=== PATIENT | female | born 1940 | race Caucasian/White ===

== ENCOUNTER 2017-02-19 08:00 | Inpatient (IN) | payer MEDICARE ==
[~2017-02-19] VITALS: Ht 172.7 cm; Wt 119.8 kg
[~2017-02-19 08:00] MED LIST: ATOR10TA15 PO; CHOL1TAB PO; FLEC1TAB8 PO; HYDR1CAP30 PO; LEVO-86 PO; LEVO.125 PO; METO50TA PO; MONT10TA4 PO; OMEP20TA PO; WALKER WHEELS/F1 MIS
[2017-02-26] MEDS ORDERED: VITA500T4 PO (13:01)
--- NOTE | 2017-03-08 14:32 | MH ---
cc: Kai SHI M.D. DATE OF ADMISSION: 03/09/2017 ADMITTING DIAGNOSIS: Osteoarthritic degeneration right knee now being admitted for right total knee arthroplasty. HISTORY OF PRESENT ILLNESS: This pleasant morbidly obese, 76-year-old female is being admitted today for right total knee arthroplasty due to severe painful osteoarthritic degeneration right knee. OTHER PAST HISTORY 1. She is several months status post left total knee arthroplasty. 2. She has a history of arthritis. 3. Heart problems. 4. Hypertension 5. Nerve disorder 6. Sleep apnea 7. Thyroid issues CURRENT MEDICATIONS 1. Flecainide 2. Avastin. 3. Omeprazole. 4. Metoprolol 5. Montelukast 6. Synthroid 7. Vitamin D3. 8. Tylenol 9. Hydroxylapatite 10. Vitamin B12. PAST SURGERIES 1. Cholecystectomy 2. Hysterectomy 3. Foot surgery 4. Left total knee. REVIEW OF SYSTEMS Noncontributory. FAMILY HISTORY Noncontributory. She does not smoke or drink. ALLERGIES ASPIRIN PRODUCTS FLU SHOT TRAMADOL TRIAMTERINE TRAZODONE PHYSICAL EXAMINATION IN GENERAL: We find a morbidly obese 76-year female well-developed, well-nourished oriented x3 complaining of pain in her right knee. VITAL SIGNS: Blood pressure 126/74, pulse 70 and regular, respirations 16, temperature 97.8, pulse oximetry 96% on room air. HEAD, EYES, EARS, NOSE, AND THROAT: Eyes Pupils equal, round, reactive to light and accommodation, extraocular muscles intact. Ears, nose, mouth clear. NECK: The neck is supple. LUNGS: The lungs are clear. HEART: Regular rate. ABDOMEN: soft. Positive bowel sounds, nontender. EXTREMITIES: The extremities reveal the right knee to have crepitance. On range of motion she is neurovascularly intact to her toes. IMPRESSION Severe painful osteoarthritic degeneration right knee. PLAN Admission right total knee arthroplasty today. The patient given prescription postoperative pain control in the office plans on going to rehab after surgery. She understands the use Hibiclens scrub and Bactroban preoperatively. MD BORIS Grady/kady /2:08 PM /2:17 PM
[2017-03-09] MEDS ORDERED: ePHEDrine/NS 25 MG/5 ML SYR IV ONE (10:14)
[2017-03-09] MEDS ORDERED: PROPOFOL 200 MG/20 ML AMP IV ONE (10:14)
[2017-03-09] MEDS ORDERED: NEOSTIGMINE 3 MG/3 ML SYR IV ONE (10:15)
[2017-03-09] MEDS ORDERED: ONDANSETRON HCL 4 MG/2 ML VIAL IV PUSH ONE (10:15)
[2017-03-09] MEDS ORDERED: LACTATED RINGER'S 1000 ML INJ 2,000 ML IV ONE (10:15)
[2017-03-09] MEDS ORDERED: PHENYLEPH/NS 1000 MCG/10 ML SYR IV ONE (10:15)
[2017-03-09 11:08] VITALS: BP 146/69; PULSE 69; RESP 18; TEMP 98; O2SAT 96
[2017-03-09] MEDS ORDERED: CHLORHEXIDINE GLUCONATE 4% SOLN 120 ML BTL TOPICAL SCH (11:15)
[2017-03-09] MEDS ORDERED: ceFAZolin 2 GM PREMIX 50 ML IV SCH (11:15)
[2017-03-09] MEDS ORDERED: SODIUM CHLORIDE 0.9% IV SCH ×2 (11:15→14:00)
[2017-03-09] MEDS ORDERED: LACTATED RINGER'S 1000 ML IV PRN (11:15)
[2017-03-09] MEDS ORDERED: METOPROLOL TARTRATE 25 MG TAB PO PRN (11:15)
[2017-03-09] MEDS ORDERED: TRANEXAMIC ACID IV SCH ×2 (11:15→14:00)
[2017-03-09] MEDS ORDERED: CHLORHEXIDINE GLUCONATE 2 % 1 PACK (2 CLOTHS) TOPICAL PRN (11:15)
[2017-03-09] MEDS ORDERED: POVIDONE IODINE 5% (ANTISEPSIS KIT) 4 APPLICATIONS EACH NARE PRN (11:15)
[2017-03-09] MEDS ORDERED: SODIUM CHLORID 0.9% 500 ML IV PRN (11:15)
[2017-03-09] MEDS ORDERED: INSULIN HUMAN REGULAR 1,000 UNITS/10 ML VIAL SQ PRN (11:15)
[2017-03-09] MEDS ORDERED: VANCOMYCIN 1000 MG/NS 250 ML (for <70 kg) IV SCH ×2 (11:15)
[2017-03-09] MEDS ORDERED: BUPIVACAINE LIPOSO PF 1.3% INJ 20 ML, BUPIVACAINE PF 0.25% INJ 20 ML in SODIUM CHLORIDE... P-ARTICULR SCH (11:15)
[2017-03-09] MEDS ORDERED: CPMMACHINE (12:10)
[2017-03-09] MEDS ORDERED: WALKER WHEELS/F1 MIS (12:12)
[2017-03-09] MEDS ORDERED: MISC-163 (12:12)
[2017-03-09] MEDS ORDERED: ACETAMINOPHEN/HYDROcodone 325 MG/7.5 MG TAB PO PRN (12:15)
[2017-03-09] MEDS ORDERED: ONDANSETRON HCL 4 MG/2 ML VIAL IVP PRN (12:15)
[2017-03-09] MEDS ORDERED: NALOXONE HCL 0.4 MG/ML AMP IV PRN ×2 (12:15)
[2017-03-09] MEDS ORDERED: MORPHINE SULFATE 30 MG/30 ML PCA IV SCH (12:15)
[2017-03-09] MEDS ORDERED: Post-op Orders (for Pharmacy) MISC XX ONE (12:15)
[2017-03-09] MEDS ORDERED: ACETAMINOPHEN 325 MG TAB PO PRN (12:15)
[2017-03-09] MEDS ORDERED: SODIUM CHLORIDE 0.9% FLUSH 5 ML FLUSH IVF PRN (12:15)
[2017-03-09] MEDS ORDERED: TRANEXAMIC ACID INJ 0 MG in SODIUM CHLORIDE 0.9% INJ 100 ML IV SCH (12:15)
[2017-03-09] MEDS ORDERED: TEMAZEPAM 15 MG CAP PO PRN (12:15)
[2017-03-09] MEDS ORDERED: diphenhydrAMINE HCL 50 MG/ML VIAL IV PRN (12:15)
[2017-03-09] MEDS ORDERED: ceFAZolin INJ 1,000 MG VIAL ONE (13:06)
[2017-03-09] MEDS ORDERED: ceFAZolin INJ 1,000 MG VIAL XX ONE (15:07)
[2017-03-09] MEDS ORDERED: DO NOT ADM ANY ANTICOAGULANT DRUGS PRN (18:06)
[2017-03-09] MEDS: LACTATED RINGER'S 1000 ML INJ 1,000 ML IV SCH (18:30)
--- NOTE | 2017-03-09 18:37 | PD.CONS ---
[facility] By [facility] Sheets Reason for Consult Medical management Primary Care Physician Crissy Oliver DO Diagnoses: History of Present Illness This is a 76-year-old female with a history of chronic right knee pain affecting her activities of daily living and requiring cane and walker. She underwent TKA today by Dr. Sheets who requested consultation to evaluate and manage multiple medical conditions of the patient. Patient has history of arrhythmia which she describes as skipped beat on Tambocor, sleep apnea not on C Pap, GERD, chronic kidney disease stage III, hyperlipidemia, hypertension and hypothyroidism. Patient seen in recovery unit complaining of mild nausea and slight right knee discomfort. She received general anesthesia, 3 L crystalloid and EBL of 400 mL. Case discussed with RN and orthopedic surgeon. EMR reviewed. Review of Systems Except as stated in HPI: all other systems reviewed are Neg Past Family Social History Allergies: Coded Allergies: Aspirin (Unverified Allergy, Severe, 03/09/17) Tramadol (Unverified Allergy, Severe, respiratory, 03/09/17) Trazodone (Unverified Allergy, Severe, 03/09/17) Triamterene (Unverified Allergy, Severe, 03/09/17) Uncoded Allergies: FLU SHOT (Allergy, Severe, respiratory, 09/11/16) Past Medical History As previously mentioned Past Surgical History Left knee replacement, cholecystectomy, hysterectomy and foot surgery Reported Medications 1. Flecainide 2. Avastin. 3. Omeprazole. 4. Metoprolol 5. Montelukast 6. Synthroid 7. Vitamin D3. 8. Tylenol 9. Hydroxylapatite 10. Vitamin B12. Family History No heart disease Social History Does not smoke or drink Physical Exam Vital Signs Vital Signs Date Time Temp Pulse Resp B/P Pulse Ox O2 Delivery O2 Flow Rate FiO2 03/09/17 11:08 98.0 69 18 146/69 96 Physical Exam GENERAL: This is a well-nourished, well-developed patient, in no apparent distress. SKIN: No rashes, ecchymoses or lesions. Cool and dry. HEAD: Atraumatic. Normocephalic. No temporal or scalp tenderness. EYES: Pupils equal round and reactive. Extraocular motions intact. No scleral icterus. No injection or drainage. ENT: Nose without bleeding, purulent drainage or septal hematoma. Throat without erythema, tonsillar hypertrophy or exudate. Uvula midline. Airway patent. NECK: Trachea midline. No JVD or lymphadenopathy. Supple, nontender, no meningeal signs. CARDIOVASCULAR: Regular rate and rhythm without murmurs, gallops, or rubs. RESPIRATORY: Clear to auscultation. Breath sounds equal bilaterally. No wheezes , rales, or rhonchi. GASTROINTESTINAL: Abdomen soft, non-tender, nondistended. No guarding. MUSCULOSKELETAL: Extremities without clubbing, cyanosis, or edema. Lower extremity with dry dressing and in a CKS. Negative Homans sign bilaterally. NEUROLOGICAL: Awake and alert. Cranial nerves II through XII intact. Motor and sensory grossly within normal limits. Five out of 5 muscle strength in all muscle groups. Normal speech. Laboratory [facility] shows white count of 6.9 and hemoglobin 13.8 platelet count 199 sodium 143 potassium 4.410 25 creatinine 1.3 to urinalysis with moderate LES and occasional bacteria urine culture negative growth Laboratory Tests Test 03/09/17 11:10 Blood Type O POSITIVE Antibody Screen NEGATIVE Assessment and Plan Problem List: (1) Thyroid disease ICD Code: E07.9 Status: Chronic (2) Sleep apnea ICD Code: G47.30 Status: Chronic (3) Osteoarthritis of knee ICD Code: M17.9 Status: Chronic (4) Chronic kidney disease ICD Code: N18.9 Status: Chronic (5) Hypertension ICD Code: I10 Status: Chronic (6) H/O cardiac arrhythmia ICD Code: Z86.79 Status: Chronic (7) Hypothyroid ICD Code: E03.9 Status: Chronic (8) GERD (gastroesophageal reflux disease) ICD Code: K21.9 Status: Chronic (9) Hyperlipidemia ICD Code: E78.5 Status: Chronic Assessment and Plan This is a 76-year-old female with a history of chronic right knee pain affecting her activities of daily living and requiring cane and walker. She underwent TKA by Dr. Sheets. Stable continue postoperative care with physical therapy, wound care, DVT prophylaxis with Lovenox and pain management with Lortab and morphine CNC SPECIALIST. Counseled regarding narcotics. Incentive spirometry. Chronic medical conditions of arrhythmia which she describes as skipped beat on Tambocor, sleep apnea not on C Pap, GERD, chronic kidney disease stage III, hyperlipidemia, hypertension and hypothyroidism. Stable continue outpatient medications as appropriate DVT prophylaxis with Lovenox, early ambulation and SCD Discussed Condition With Patient and nursing staff Romie Juares MD March 09, 2017 18:37
[2017-03-09] MEDS ORDERED: fentaNYL CITRATE 250 MCG/5 ML AMP ONE (18:40)
--- NOTE | 2017-03-09 18:40 | RADRPT ---
EXAM DATE/TIME: 03/09/2017 18:00 [facility] COMPARISON: No previous studies available for comparison. INDICATIONS : Post operation, knee replacement. MEDICAL HISTORY : None. SURGICAL HISTORY : None. ENCOUNTER: Initial ACUITY: 1 day PAIN SCORE: Non-responsive. LOCATION: Right knee. FINDINGS: Patient is status post right knee arthroplasty that appears intact. There is some widening of the med ial compartment relative to the lateral, potentially positional or related to an effusion. Followup i s recommended. CONCLUSION: Recent right knee arthroplasty as above. Slight widening of the medial joint space relative to the la teral. No other acute complication demonstrated. Avinash Thurston MD on March 09, 2017 at 18:37 Board Certified Radiologist. This report was verified electronically.
[2017-03-09 21:00] VITALS: BP 130/62; PULSE 67; RESP 17; TEMP 96.3; O2SAT 100
[2017-03-09] MEDS: SODIUM CHLORIDE 0.9% FLUSH 5 ML FLUSH IVF SCH (21:00)
[2017-03-09] MEDS: PANTOPRAZOLE SOD 20 MG DELAYED RELEASE TAB PO SCH (21:01)
[2017-03-09] MEDS: ATORVASTATIN 10 MG TAB PO SCH (21:01)
[2017-03-09] MEDS: hydrOXYzine PAMOATE 25 MG CAP PO SCH (21:01)
[2017-03-09] MEDS: FLECAINIDE ACETATE 100 MG TAB PO SCH (21:01)
[2017-03-09] MEDS: PCA - TOTAL MG MORPHINE DELIVERED PER SHIFT SCH (21:02)
[2017-03-09 23:41] VITALS: BP 125/58; PULSE 77; RESP 16; TEMP 96.7; O2SAT 98
[2017-03-10 04:00] VITALS: BP 112/52; PULSE 62; RESP 16; TEMP 96.2; O2SAT 92
[2017-03-10 05:21] LABS: HEMATOCRIT 31.1 % (35.0-46.0); REVIEW FLAG FINAL
[2017-03-10] MEDS: PCA - TOTAL MG MORPHINE DELIVERED PER SHIFT SCH (06:00)
[2017-03-10] MEDS: LEVOTHYROXINE SODIUM 25 MCG TAB PO SCH (06:16)
[2017-03-10] MEDS: LEVOTHYROXINE SODIUM 112 MCG TAB PO SCH (06:16)
[2017-03-10 08:00] VITALS: BP 103/45; PULSE 76; RESP 18; TEMP 97.3; O2SAT 100
--- NOTE | 2017-03-10 08:33 | PD.ORT.PN ---
Subjective Subjective Remarks pt comfortable without complaints. Objective Vitals Vital Signs Date Time Temp Pulse Resp B/P Pulse Ox O2 Delivery O2 Flow Rate FiO2 03/10/17 06:00 18 03/10/17 04:00 96.2 62 16 112/52 92 03/09/17 23:41 96.7 77 16 125/58 98 03/09/17 21:00 96.3 67 17 130/62 100 03/09/17 20:05 Nasal Cannula 2.00 03/09/17 19:45 97.4 56 16 107/53 100 Nasal Cannula 3 03/09/17 19:15 63 16 131/63 100 Nasal Cannula 3 03/09/17 19:00 60 17 131/63 100 Nasal Cannula 3 03/09/17 18:45 59 17 119/61 97 Nasal Cannula 3 03/09/17 18:34 15 03/09/17 18:30 62 15 117/61 97 Nasal Cannula 3 03/09/17 18:15 71 15 122/62 97 Nasal Cannula 3 03/09/17 18:03 97.7 71 15 126/64 100 Nasal Cannula 3 03/09/17 11:08 98.0 69 18 146/69 96 I/O 03/09/17 03/09/17 03/09/17 03/10/17 03/10/17 03/10/17 07:00 15:00 23:00 07:00 15:00 23:00 Intake Total 2605 ml 250 ml Output Total 850 ml Balance 1755 ml 250 ml Intake Oral 480 ml 250 ml IV Total 125 ml Other 2000 ml Output Urine Total 450 ml Estimated Blood Loss 400 ml # Voids 0 3 # Bowel Movements 0 0 Result Diagram: 03/10/17 0413 Imaging Last 24 hours Impressions Knee X-Ray 03/09/17 1203 Signed Impressions: Service Date/Time: Thursday, March 09, 2017 18:00 - CONCLUSION: Recent right knee arthroplasty as above. Slight widening of the medial joint space relative to the lateral. No other acute complication demonstrated. Avinash Thurston MD Objective Remarks Dressing dry and intact. No calf tenderness. With knee immobilizer off, new xray shows better alignment of total knee. Assessment & Plan Ortho Post Op Day #: 1 Problem List: Assessment and Plan DC knee immobilizer and resume PT. DC NURSE INTERN. Watch blood pressure. Kai Sheets MD March 10, 2017 08:33
[2017-03-10] MEDS: METOPROLOL TARTRATE 50 MG TAB PO SCH (09:00)
[2017-03-10] MEDS: SODIUM CHLORIDE 0.9% FLUSH 5 ML FLUSH IVF SCH ×2 (09:00→21:00)
--- NOTE | 2017-03-10 09:02 | RADRPT ---
EXAM DATE/TIME: 03/10/2017 08:10 [facility] COMPARISON: KNEE RIGHT LTD (1 OR 2 VWS), March 09, 2017, 18:00. INDICATIONS : Right knee pain status post total right knee arthroplasty. MEDICAL HISTORY : None. SURGICAL HISTORY : Total knee replacement, right. ENCOUNTER: Subsequent ACUITY: 2 days PAIN SCORE: 3/10 LOCATION: Right Knee FINDINGS: 2 views right knee. Total knee prosthesis in place. Previously identified widening medially is not se en on the current study. No fracture identified. CONCLUSION: Total knee prosthesis. Previously identified medial widening is no longer seen. Freddie Lizarraga MD on March 10, 2017 at 8:58 Board Certified Radiologist. This report was verified electronically.
[2017-03-10] MEDS: CHOLECALCIFEROL (VIT D3) 1000 UNIT TAB PO SCH (09:41)
[2017-03-10] MEDS: PANTOPRAZOLE SOD 20 MG DELAYED RELEASE TAB PO SCH ×2 (09:41→20:59)
[2017-03-10] MEDS: FLECAINIDE ACETATE 100 MG TAB PO SCH ×2 (09:42→20:59)
[2017-03-10] MEDS: MONTELUKAST SODIUM 10 MG TAB PO SCH (09:42)
--- NOTE | 2017-03-10 09:43 | HHI.PR ---
Immediate Post Op Note Procedure Date: March 09, 2017 Pre Op Diagnosis: (1) Osteoarthritis of knee Post Op Diagnosis: Severe Degenerative Osteoarthritis of Right knee Surgeon: Don Sheets Facer Operator(s): Glenis SINGH Procedure: Right Total Knee Arthroplasty Complications: none Estimated blood loss: 200 Anesthesia: General Drains: None IVF (1300) Tourniquet time (min at mmHg) none Patient to: PACU Patient Condition: Good Implant/Devices: SEE IMPLANT LOG (if applicable) Date/Time of Procedure: SEE SURGICAL CARE RECORD Glenis Vargas March 10, 2017 09:43
[2017-03-10 10:40] VITALS: O2SAT 96
[2017-03-10] MEDS ORDERED: PILL SPLITTER OTHER PRN (11:00)
--- NOTE | 2017-03-10 11:35 | HHI.PR ---
Subjective Remarks Follow-up knee surgery. She is doing okay out of bed with physical therapy. Discussed with RN Objective Vitals Vital Signs Date Time Temp Pulse Resp B/P Pulse Ox O2 Delivery O2 Flow Rate FiO2 03/10/17 08:00 97.3 76 18 103/45 100 03/10/17 06:00 18 03/10/17 04:00 96.2 62 16 112/52 92 03/09/17 23:41 96.7 77 16 125/58 98 03/09/17 21:00 96.3 67 17 130/62 100 03/09/17 20:05 Nasal Cannula 2.00 03/09/17 19:45 97.4 56 16 107/53 100 Nasal Cannula 3 03/09/17 19:15 63 16 131/63 100 Nasal Cannula 3 03/09/17 19:00 60 17 131/63 100 Nasal Cannula 3 03/09/17 18:45 59 17 119/61 97 Nasal Cannula 3 03/09/17 18:34 15 03/09/17 18:30 62 15 117/61 97 Nasal Cannula 3 03/09/17 18:15 71 15 122/62 97 Nasal Cannula 3 03/09/17 18:03 97.7 71 15 126/64 100 Nasal Cannula 3 I/O 03/09/17 03/09/17 03/09/17 03/10/17 03/10/17 03/10/17 07:00 15:00 23:00 07:00 15:00 23:00 Intake Total 2605 ml 250 ml Output Total 850 ml Balance 1755 ml 250 ml Intake Oral 480 ml 250 ml IV Total 125 ml Other 2000 ml Output Urine Total 450 ml Estimated Blood Loss 400 ml # Voids 0 3 # Bowel Movements 0 0 Result Diagram: 03/10/17 0413 Imaging Last Impressions Knee X-Ray 03/10/17 0000 Signed Impressions: Service Date/Time: Friday, March 10, 2017 08:10 - CONCLUSION: Total knee prosthesis. Previously identified medial widening is no longer seen. Freddie Lizarraga MD Objective Remarks GENERAL: Well-developed, obese in no distress SKIN: Warm and dry. HEAD: Atraumatic. Normocephalic. EYES: Pupils equal and round. No scleral icterus. No injection or drainage. ENT: No nasal bleeding or discharge. Mucous membranes pink and moist. NECK: Trachea midline. No JVD. CARDIOVASCULAR: Regular rate and rhythm. RESPIRATORY: No accessory muscle use. Clear to auscultation. Breath sounds equal bilaterally. GASTROINTESTINAL: Abdomen soft, non-tender, nondistended. MUSCULOSKELETAL: Extremities without clubbing, cyanosis, or edema. No obvious deformities. Right knee with dry dressing NEUROLOGICAL: Awake and alert. No obvious cranial nerve deficits. Motor grossly within normal limits. Five out of 5 muscle strength in the arms and legs. Normal speech. PSYCHIATRIC: Appropriate mood and affect; insight and judgment normal. A/P Problem List: (1) Thyroid disease ICD Code: E07.9 Status: Chronic (2) Sleep apnea ICD Code: G47.30 Status: Chronic (3) Osteoarthritis of knee ICD Code: M17.9 Status: Chronic (4) Chronic kidney disease ICD Code: N18.9 Status: Chronic (5) Hypertension ICD Code: I10 Status: Chronic (6) H/O cardiac arrhythmia ICD Code: Z86.79 Status: Chronic (7) Hypothyroid ICD Code: E03.9 Status: Chronic (8) GERD (gastroesophageal reflux disease) ICD Code: K21.9 Status: Chronic (9) Hyperlipidemia ICD Code: E78.5 Status: Chronic Assessment and Plan This is a 76-year-old female with a history of chronic right knee pain affecting her activities of daily living and requiring cane and walker. She underwent TKA by Dr. Sheets. Stable continue postoperative care with physical therapy, wound care, DVT prophylaxis with Lovenox and pain management with Lortab and morphine OCCUPATIONAL THERAPY ASSISTANT. Counseled regarding narcotics. Incentive spirometry. Anemia secondary to acute blood loss. Hemodynamically stable. Monitor repeat H &H in the morning Chronic medical conditions of arrhythmia which she describes as skipped beat on Tambocor, sleep apnea not on C Pap, GERD, chronic kidney disease stage III, hyperlipidemia, hypertension and hypothyroidism. Stable continue outpatient medications as appropriate DVT prophylaxis with Lovenox, early ambulation and SCD Romie Juares MD March 10, 2017 11:35
[2017-03-10 12:00] VITALS: BP 115/54; PULSE 76; RESP 18; TEMP 97.2; O2SAT 94
[2017-03-10] MEDS: CYANOCOBALAMIN 1,000 MCG TAB PO SCH (13:51)
[2017-03-10] MEDS: LACTATED RINGER'S 1000 ML INJ 1,000 ML IV SCH ×2 (13:53→21:01)
[2017-03-10 16:00] VITALS: BP 103/48; PULSE 86; RESP 18; TEMP 97.4; O2SAT 93
[2017-03-10] MEDS: ENOXAPARIN SODIUM 30 MG/0.3 ML SYRINGE SQ SCH (17:49)
[2017-03-10] MEDS: ACETAMINOPHEN/HYDROcodone 325 MG/7.5 MG TAB PO PRN (17:55)
[2017-03-10 20:00] VITALS: BP 108/47; PULSE 90; RESP 20; TEMP 98; O2SAT 93
[2017-03-10] MEDS: DOCUSATE SODIUM 100 MG CAP PO SCH (20:59)
[2017-03-10] MEDS: ATORVASTATIN 10 MG TAB PO SCH (20:59)
[2017-03-10] MEDS: MULTIVITAMINS/MINERALS THERAPEUTIC TAB PO SCH (21:00)
[2017-03-10] MEDS: hydrOXYzine PAMOATE 25 MG CAP PO SCH (21:00)
--- NOTE | 2017-03-10 23:24 | MP ---
cc: Kai SHI DATE OF SURGERY 03/09/17 PREOPERATIVE DIAGNOSIS Osteoarthritic degeneration right knee. POSTOPERATIVE DIAGNOSIS Osteoarthritic degeneration right knee PROCEDURE Right total knee arthroplasty using consensus components sizes were size four femur, three tibia and 2 x 7.5 patella with three batches of [place] cement SURGEON Kortney Ramirez ACUTE CARE PHYSICIAN SAMANTHA Solomon and SAMANTHA Mcmillan ANESTHESIA General intubation PROCEDURE: After successful induction of anesthesia, the patient is placed on the operating room table in the supine position. The knee is prepped and draped in the usual manner. A tourniquet is inflated at the upper thigh and set to 300 mmHg pressure after exsanguination of the lower extremity. A longitudinal incision is made extending from 3 inches proximal to the superior pole of the patella, across the patella in longitudinal fashion, and down past the insertion of the tibial tubercle into the proximal tibia. The incision is carried down through subcutaneous tissue along the medial aspect of the patella and retinaculum, down through the capsule to expose the knee joint. The patella and patellar tendon are freed up enough to allow the patella to be inverted and retracted off the lateral side of the knee joint. The knee joint is left exposed. Small osteophytes are removed. All soft tissue is removed to allow proper position of the femoral and tibial cutting jig guide. The first femoral jig is then inserted along the distal end of the femur after first measuring to decide whether this is a small, medium, or large component. The notch is then drilled and the tibial cutting guide inserted into the femoral cutting guide, along with the ankle brace to allow for proper measurement of the tibial cutting surface that needed to be resected. Pins are inserted into the tibial cutting jig and femoral cutting jig to hold them in place. An oscillating saw is then used to resect the surface of the tibia. The surface of the tibia is then completely removed using sharp and blunt dissection. The anterior and posterior cuts of the femur are then made as well using an oscillating saw through the cutting guide. All guides are then removed and the varus/valgus angulation cutting guide applied to the femur for proper measurement of the proper amount of valgus. The anterior cutting guide for the femur is then inserted at the anterior femoral cuts made. Next, the first block trial is inserted into the femur to allow for proper condyle drill holes to be made which are then made followed by removal of the bone between the condyles using an oscillating saw as well as the bone removed at the most posterior surface of the condyle. After this, this guide is removed and the chamfer cuts made using the chamfer cutting guide from both anterior and posterior. Next, the femoral trial is then inserted, the tibial surface reflected anterior to expose the tibial surface and a tibial stem guide is inserted after first measuring for a standard, standard plus, large, or large plus surface to be used. After the stem is impacted the trial tibial surface is applied followed by the trial meniscal components. After full range of motion is found with the appropriate length meniscal components varying the patella is prepared by resecting the posterior aspect of the patella using an oscillating saw, inserting a trial. The trial is then removed and the cruciate cutting guide applied using the bur to cut the cruciate cuts. After cruciate cuts are made all trials are removed. The wound is irrigated copiously with antibiotic solution and Water Pik and the actual components inserted into place using aforementioned components using the B spoke protocol. After the cement has hardened and the components are found to have full range of motion with no instability. No tourniquet was utilized. 120 mL of Exparel was used around the knee joint for extra pain control. Deep fascia approximated with the insert was a size 16 insert Deep fascia approximated with running #2 quill, subcutaneous tissue approximated using interrupted 2-0 and 4-0 Monocryl suture and Steri-Strips. A sterile dressing and knee immobilizer. No drain utilized. The first assistants were present throughout the entire procedure including patient positioning throughout the procedure. The medical necessity of a nurse practitioner assistant toddler teacher is indicated in this case due to the surgical complexity of the case for help during the surgical case, certified surgical technologist was working the back table while my surgical coder SAMANTHA was directly assisting me also. This patient took an extra 45 minutes of exposure and closure time due to the nature of her morbid obesity and extra suturing layers were necessary. The patient tolerated the procedure well and left the operating in satisfactory condition. MD BORIS Grady/ /5:04 PM /11:00 PM
[2017-03-11] VITALS (7 sets, daily range): BP systolic 103–137; BP diastolic 44–57; PULSE 81–97; RESP 18–24; TEMP 96.4–98.4; O2SAT 90–100
[2017-03-11] MEDS: LEVOTHYROXINE SODIUM 112 MCG TAB PO SCH (04:58)
[2017-03-11] MEDS: LEVOTHYROXINE SODIUM 25 MCG TAB PO SCH (04:58)
[2017-03-11] MEDS: ENOXAPARIN SODIUM 30 MG/0.3 ML SYRINGE SQ SCH ×2 (04:58→17:01)
[2017-03-11 05:48] LABS: HEMATOCRIT 28.1 % (35.0-46.0); REVIEW FLAG FINAL
[2017-03-11] MEDS: METOPROLOL TARTRATE 50 MG TAB PO SCH (08:47)
[2017-03-11] MEDS: MAGNESIUM HYDROXIDE SUSP 30 ML CUP PO SCH ×2 (08:55→21:27)
[2017-03-11] MEDS: CYANOCOBALAMIN 1,000 MCG TAB PO SCH (08:55)
[2017-03-11] MEDS: CHOLECALCIFEROL (VIT D3) 1000 UNIT TAB PO SCH (08:56)
[2017-03-11] MEDS: MULTIVITAMINS/MINERALS THERAPEUTIC TAB PO SCH ×2 (08:56→21:27)
[2017-03-11] MEDS: MONTELUKAST SODIUM 10 MG TAB PO SCH (08:56)
[2017-03-11] MEDS: FLECAINIDE ACETATE 100 MG TAB PO SCH ×2 (08:57→21:27)
[2017-03-11] MEDS: PANTOPRAZOLE SOD 20 MG DELAYED RELEASE TAB PO SCH ×2 (08:57→21:27)
[2017-03-11] MEDS: DOCUSATE SODIUM 100 MG CAP PO SCH ×2 (08:58→21:27)
[2017-03-11] MEDS: SODIUM CHLORIDE 0.9% FLUSH 5 ML FLUSH IVF SCH ×2 (08:58→21:00)
[2017-03-11] MEDS: LEVOTHYROXINE SODIUM 125 MCG TAB PO SCH (09:15)
--- NOTE | 2017-03-11 09:20 | PD.ORT.PN ---
Subjective Post Op Day #: 2 Subjective Remarks Resting in bed; breakfast just arrived Complains of having a Headache No other significant complaints No BM Objective Vitals Vital Signs Date Time Temp Pulse Resp B/P Pulse Ox O2 Delivery O2 Flow Rate FiO2 03/11/17 04:00 96.4 90 24 114/51 92 03/11/17 00:00 98.1 90 20 117/44 90 03/10/17 20:00 98.0 90 20 108/47 93 03/10/17 16:00 97.4 86 18 103/48 93 03/10/17 12:00 97.2 76 18 115/54 94 03/10/17 10:40 96 21 I/O 03/10/17 03/10/17 03/10/17 03/11/17 03/11/17 03/11/17 07:00 15:00 23:00 07:00 15:00 23:00 Intake Total 250 ml 314 ml 1380 ml 240 ml Balance 250 ml 314 ml 1380 ml 240 ml Intake Oral 250 ml 1380 ml 240 ml IV Total 314 ml # Voids 3 3 1 # Bowel Movements 0 0 0 Result Diagram: 03/11/17 0514 Imaging Last 24 hours Impressions Knee X-Ray 03/09/17 1203 Signed Impressions: Service Date/Time: Thursday, March 09, 2017 18:00 - CONCLUSION: Recent right knee arthroplasty as above. Slight widening of the medial joint space relative to the lateral. No other acute complication demonstrated. Avinash Thurston MD Objective Remarks Alert, awake, oriented X3 VSS: Pulmonary: normal respiratory effort No acute distress right knee: dressing dry and intact; no calf tenderness; No Knee immobilizer Assessment & Plan Ortho Post Op Day #: 2 Problem List: Assessment and Plan POD 2 S/P Right Total Knee arthroplasty Doing well normal post op progress Anticoagulation: Lovenox while in hospital Pt following Discharge Planning for rehab tomorrow Chris NAVA knee immobilizer and resume PT. Watch blood pressure. Glenis Vargas March 11, 2017 09:20
[2017-03-11] MEDS ORDERED: BACITRACIN OINT 0.9 GM PKT TOP PRN (10:15)
[2017-03-11] MEDS ORDERED: HYDR-3580 PO (10:38)
--- NOTE | 2017-03-11 12:20 | HHI.PR ---
Subjective Remarks Follow-up anemia. Denies dizziness, chest pain, shortness of breath and palpitations. Still no bowel movement but denies nausea, abdominal pain Objective Vitals Vital Signs Date Time Temp Pulse Resp B/P Pulse Ox O2 Delivery O2 Flow Rate FiO2 03/11/17 08:00 97.7 88 18 119/57 94 03/11/17 04:00 96.4 90 24 114/51 92 03/11/17 00:00 98.1 90 20 117/44 90 03/10/17 20:00 98.0 90 20 108/47 93 03/10/17 16:00 97.4 86 18 103/48 93 I/O 03/10/17 03/10/17 03/10/17 03/11/17 03/11/17 03/11/17 06:59 14:59 22:59 06:59 14:59 22:59 Intake Total 250 ml 1694 ml 240 ml Balance 250 ml 1694 ml 240 ml Intake Oral 250 ml 1380 ml 240 ml IV Total 314 ml # Voids 3 3 1 # Bowel Movements 0 0 0 Result Diagram: 03/11/17 0514 Imaging Last Impressions Knee X-Ray 03/10/17 0000 Signed Impressions: Service Date/Time: Friday, March 10, 2017 08:10 - CONCLUSION: Total knee prosthesis. Previously identified medial widening is no longer seen. Freddie Lizarraga MD Objective Remarks GENERAL: Well-developed, obese in no distress SKIN: Warm and dry. HEAD: Atraumatic. Normocephalic. EYES: Pupils equal and round. No scleral icterus. No injection or drainage. ENT: No nasal bleeding or discharge. Mucous membranes pink and moist. NECK: Trachea midline. No JVD. CARDIOVASCULAR: Regular rate and rhythm. RESPIRATORY: No accessory muscle use. Clear to auscultation. Breath sounds equal bilaterally. GASTROINTESTINAL: Abdomen soft, non-tender, nondistended. MUSCULOSKELETAL: Extremities without clubbing, cyanosis, or edema. No obvious deformities. Right knee with dry dressing NEUROLOGICAL: Awake and alert. No obvious cranial nerve deficits. Motor grossly within normal limits. Five out of 5 muscle strength in the arms and legs. Normal speech. Nonfocal PSYCHIATRIC: Appropriate mood and affect; insight and judgment normal. A/P Problem List: (1) Thyroid disease ICD Code: E07.9 Status: Chronic (2) Sleep apnea ICD Code: G47.30 Status: Chronic (3) Osteoarthritis of knee ICD Code: M17.9 Status: Chronic (4) Chronic kidney disease ICD Code: N18.9 Status: Chronic (5) Hypertension ICD Code: I10 Status: Chronic (6) H/O cardiac arrhythmia ICD Code: Z86.79 Status: Chronic (7) Hypothyroid ICD Code: E03.9 Status: Chronic (8) GERD (gastroesophageal reflux disease) ICD Code: K21.9 Status: Chronic (9) Hyperlipidemia ICD Code: E78.5 Status: Chronic Assessment and Plan This is a 76-year-old female with a history of chronic right knee pain affecting her activities of daily living and requiring cane and walker. She underwent TKA by Dr. Sheets. 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 Counseled regarding narcotics. Incentive spirometry. Anemia secondary to acute blood loss. Hemodynamically stable. Monitor Constipation. Continue Colace. Chronic medical conditions of arrhythmia which she describes as skipped beat on Tambocor, sleep apnea not on C Pap, GERD, chronic kidney disease stage III, hyperlipidemia, hypertension and hypothyroidism. Stable continue outpatient medications as appropriate DVT prophylaxis with Lovenox, early ambulation and SCD Romie Juares MD March 11, 2017 12:20
[2017-03-11] MEDS: LACTATED RINGER'S 1000 ML INJ 1,000 ML IV SCH ×2 (14:03→21:30)
[2017-03-11] MEDS: ACETAMINOPHEN/HYDROcodone 325 MG/7.5 MG TAB PO PRN (17:38)
[2017-03-11] MEDS: hydrOXYzine PAMOATE 25 MG CAP PO SCH (21:27)
[2017-03-11] MEDS: ATORVASTATIN 10 MG TAB PO SCH (21:27)
[2017-03-12] VITALS: BP 134/50; PULSE 86; RESP 20; TEMP 98.5; O2SAT 97
[2017-03-12] MEDS ORDERED: BISACODYL 10 MG SUPP RECTAL PRN (03:57)
[2017-03-12 04:00] VITALS: BP 133/55; PULSE 96; RESP 20; TEMP 98; O2SAT 99
[2017-03-12] MEDS: ENOXAPARIN SODIUM 30 MG/0.3 ML SYRINGE SQ SCH (04:50)
[2017-03-12] MEDS ORDERED: BISACODYL 10 MG SUPP RECTAL ONE (06:00)
[2017-03-12 07:05] VITALS: BP 135/56; PULSE 92; RESP 18; TEMP 97.9; O2SAT 100
--- NOTE | 2017-03-12 07:59 | HHI.PR ---
Subjective Remarks In the chair. Says she has some pain however is controlled by medications. No nausea or vomiting. Tolerates food. Denies chest pain or shortness of breath. Denies fever or chills. Objective Vitals Vital Signs Date Time Temp Pulse Resp B/P Pulse Ox O2 Delivery O2 Flow Rate FiO2 03/12/17 04:00 98.0 96 20 133/55 99 03/12/17 00:00 98.5 86 20 134/50 97 03/11/17 20:15 Nasal Cannula 2.00 03/11/17 20:00 97.8 97 22 137/52 97 03/11/17 17:33 117/56 03/11/17 16:00 97.6 88 18 103/50 100 03/11/17 15:54 Nasal Cannula 2.00 21 03/11/17 12:00 98.4 81 18 107/56 99 03/11/17 08:00 97.7 88 18 119/57 94 I/O 03/11/17 03/11/17 03/11/17 03/12/17 03/12/17 03/12/17 07:00 15:00 23:00 07:00 15:00 23:00 Intake Total 240 ml 1260 ml 240 ml Balance 240 ml 1260 ml 240 ml Intake Oral 240 ml 1260 ml 240 ml # Voids 1 4 2 # Bowel Movements 0 0 0 Result Diagram: 03/11/17 0514 Imaging Last Impressions Knee X-Ray 03/10/17 0000 Signed Impressions: Service Date/Time: Friday, March 10, 2017 08:10 - CONCLUSION: Total knee prosthesis. Previously identified medial widening is no longer seen. Freddie Lizarraga MD Objective Remarks GENERAL: Well-developed, obese in no distress SKIN: Warm and dry. HEAD: Atraumatic. Normocephalic. EYES: Pupils equal and round. No scleral icterus. No injection or drainage. ENT: No nasal bleeding or discharge. Mucous membranes pink and moist. NECK: Trachea midline. No JVD. CARDIOVASCULAR: Regular rate and rhythm. RESPIRATORY: No accessory muscle use. Clear to auscultation. Breath sounds equal bilaterally. GASTROINTESTINAL: Abdomen soft, non-tender, nondistended. MUSCULOSKELETAL: Extremities without clubbing, cyanosis, or edema. No obvious deformities. Right knee with dry dressing NEUROLOGICAL: Awake and alert. No obvious cranial nerve deficits. Motor grossly within normal limits. Five out of 5 muscle strength in the arms and legs. Normal speech. Nonfocal PSYCHIATRIC: Appropriate mood and affect; insight and judgment normal. A/P Problem List: (1) Thyroid disease ICD Code: E07.9 Status: Chronic (2) Sleep apnea ICD Code: G47.30 Status: Chronic (3) Osteoarthritis of knee ICD Code: M17.9 Status: Chronic (4) Chronic kidney disease ICD Code: N18.9 Status: Chronic (5) Hypertension ICD Code: I10 Status: Chronic (6) H/O cardiac arrhythmia ICD Code: Z86.79 Status: Chronic (7) Hypothyroid ICD Code: E03.9 Status: Chronic (8) GERD (gastroesophageal reflux disease) ICD Code: K21.9 Status: Chronic (9) Hyperlipidemia ICD Code: E78.5 Status: Chronic Assessment and Plan This is a 76-year-old female with a history of chronic right knee pain affecting her activities of daily living and requiring cane and walker. She underwent TKA by Dr. Sheets. Stable continue postoperative care with physical therapy, wound care, DVT prophylaxis with Lovenox and pain management with Lortab and morphine [employer]. Counseled regarding narcotics. Encouraged incentive spirometry. Anemia secondary to acute blood loss. Hemodynamically stable. Monitor Constipation. Continue Colace. Chronic medical conditions of arrhythmia which she describes as skipped beat on Tambocor, sleep apnea not on C Pap, GERD, chronic kidney disease stage III, hyperlipidemia, hypertension and hypothyroidism. Stable continue outpatient medications as appropriate Morbid obesity BMI 40.3. Diet and exercise. DVT prophylaxis with Lovenox, early ambulation and SCD Colleen Tomas MD March 12, 2017 07:59
[2017-03-12] MEDS: MAGNESIUM HYDROXIDE SUSP 30 ML CUP PO SCH (09:00)
[2017-03-12] MEDS: SODIUM CHLORIDE 0.9% FLUSH 5 ML FLUSH IVF SCH (09:00)
[2017-03-12] MEDS: ACETAMINOPHEN/HYDROcodone 325 MG/7.5 MG TAB PO PRN ×2 (10:16→14:32)
[2017-03-12] MEDS: DOCUSATE SODIUM 100 MG CAP PO SCH (10:16)
[2017-03-12] MEDS: CHOLECALCIFEROL (VIT D3) 1000 UNIT TAB PO SCH (10:16)
[2017-03-12] MEDS: METOPROLOL TARTRATE 50 MG TAB PO SCH (10:16)
[2017-03-12] MEDS: CYANOCOBALAMIN 1,000 MCG TAB PO SCH (10:17)
[2017-03-12] MEDS: PANTOPRAZOLE SOD 20 MG DELAYED RELEASE TAB PO SCH (10:18)
[2017-03-12] MEDS: MULTIVITAMINS/MINERALS THERAPEUTIC TAB PO SCH (10:19)
[2017-03-12] MEDS: LEVOTHYROXINE SODIUM 125 MCG TAB PO SCH (10:19)
[2017-03-12] MEDS: FLECAINIDE ACETATE 100 MG TAB PO SCH (10:19)
[2017-03-12] MEDS: MONTELUKAST SODIUM 10 MG TAB PO SCH (10:30)
[2017-03-12 10:33] VITALS: O2SAT 96
[2017-03-12 11:50] VITALS: BP 97/58; PULSE 72; RESP 18; TEMP 98.6; O2SAT 95
[2017-03-12] MEDS ORDERED: MAGNESIUM HYDROXIDE SUSP 30 ML CUP PO PRN (14:15)
--- NOTE | 2017-03-12 15:08 | HHI.DS ---
Discharge Summary Admission Date March 09, 2017 at 10:00 Discharge Date: March 12, 2017 Admitting Diagnosis Osteoarthritic degeneration right knee. Diagnosis: (1) Total knee replacement status Diagnosis: Principal Brief History This is a 76 year old female patient CBC/BMP: 03/11/17 0514 Significant Findings Laboratory Tests Test 03/10/17 03/11/17 04:13 05:14 Hemoglobin 10.4 GM/DL 9.4 GM/DL (11.6-15.3) (11.6-15.3) Hematocrit 31.1 % 28.1 % (35.0-46.0) (35.0-46.0) PE at Discharge Alert, awake, oriented X3 VSS: Pulmonary: normal respiratory effort No acute distress right knee: dressing dry and intact; no calf tenderness; No Knee immobilizer Hospital Course Patient underwent a right total knee arthroplasty on day of admission. She was given a course of prophylactic IV antibiotics and within 23 hours started back on anticoagulation therapy. She began out of bed tolerating food and fluid well. She remained afebrile vitals stable and began daily wound care and physical therapy. She continued to improve and was discharged to [facility] on postoperative day 3 in good condition with instructions for continuation of care anticoagulation therapy and pain medication. Pt Condition on Discharge: Good Discharge Disposition: Rehab Inpatient Discharge Instructions Diet Instructions: As Tolerated, No Restrictions Activities You Can Perform: Full Weight Bearing, Shower Only-No Bath Activities to Avoid: Bathing, Driving Kai Sheets MD March 12, 2017 15:08
[2017-03-23] MEDS ORDERED: OMEP20TA PO (08:37)
[2017-03-23] MEDS ORDERED: METO50TA PO (08:37)
[2017-03-23] MEDS ORDERED: FLEC1TAB8 PO (08:37)
[2017-03-23] MEDS ORDERED: DOCU1CAP39 PO (08:37)
[2017-03-23] MEDS ORDERED: VITA1000 PO (08:37)
[2017-03-23] MEDS ORDERED: LEVO.125 PO (08:37)
[2017-03-23] MEDS ORDERED: THERTAB15 PO (08:37)
[2017-03-23] MEDS ORDERED: ATOR10TA15 PO (08:37)
[2017-03-23] MEDS ORDERED: LEVO-86 PO (08:37)
[2017-03-23] MEDS ORDERED: MONT10TA4 PO (08:37)
== END 2017-03-12 14:48 | DRG 470 ==
LOC: HSDI 03-09 10:00 → N06B 03-09 19:57
PROVIDERS: ADMIT Surgery; ATTEND Surgery
PROC: 3E0T3CZ (ICD-10-PCS; 2017-03-09)
PROC: 0SRC0J9 Replacement of Right Knee Joint with Synthetic Substitute, Cemented, Open Approach (ICD-10-PCS; principal; 2017-03-09 13:58)
DX: M17.11 Unilateral primary osteoarthritis, right knee (principal); N18.3 Chronic kidney disease, stage 3 (moderate); D62 Acute posthemorrhagic anemia; Z68.41 Body mass index [BMI] 40.0-44.9, adult; I12.9 Hypertensive chronic kidney disease with stage 1 through stage 4 chronic kidney disease, or unspecified chronic kidney disease; E66.01 Morbid (severe) obesity due to excess calories; G47.30 Sleep apnea, unspecified; G89.29 Other chronic pain; K21.9 Gastro-esophageal reflux disease without esophagitis; E78.5 Hyperlipidemia, unspecified; E03.9 Hypothyroidism, unspecified; I49.9 Cardiac arrhythmia, unspecified; R11.0 Nausea; K59.00 Constipation, unspecified; Z96.652 Presence of left artificial knee joint
CPT/HCPCS: 73560; 85014; 85018; 86850; 86900; 86901; 94150; C1776; C9290; J0690; J1650; J2270; J2370; J2405; J2710; J3010; J3370; J7050; J7120; L1830; Q0177

== ENCOUNTER → 2017-02-26 | Outpatient (CLI) | payer MEDICARE ==
[~2017-02-26] MED LIST changes: +ADJUSTABLE COMM1 MIS; +CPMMACHINE; +DOCU1CAP39 PO; +HYDR-3288 PO; +HYDR-3580 PO; +MISC-163; +THERTAB15 PO; +VITA1000 PO; +VITA500T4 PO
[2017-02-26 09:12] LABS: AUTOMATED NEUTROPHIL # 3.5 TH/MM3 (1.8-7.7); BASOPHIL % 0.7 % (0.0-2.0); EOSINOPHIL # 0.4 TH/MM3 (0-0.4); EOSINOPHIL % 5.7 % (0.0-4.0); HEMATOCRIT 41.4 % (35.0-46.0); HEMO FLAGS DIFF FINAL; LYMPHOCYTE # 2.6 TH/MM3 (1.0-4.8); MEAN CELL VOLUME 86.6 FL (80.0-100.0); MEAN CORPUSCULAR HEMOGLOBIN 28.9 PG (27.0-34.0); MEAN CORPUSCULAR HGB CONC 33.4 % (32.0-36.0); MONO % 6.8 % (0.0-8.0); NEUT % 49.8 % (16.0-70.0); PLATELET COUNT 199 TH/MM3 (150-450); RED BLOOD COUNT 4.78 MIL/MM3 (4.00-5.30); RED CELL DISTRIBUTION WIDTH 13.7 % (11.6-17.2); WHITE BLOOD COUNT 6.9 TH/MM3 (4.0-11.0)
[2017-02-26 09:26] LABS: APTT (PATIENT) 23.9 SEC (24.3-30.1); PROTHROMBIN TIME - PATIENT 10.7 SEC (9.8-11.6)
[2017-02-26 09:44] LABS: ALKALINE PHOSPHATASE 109 U/L (45-117); ALT (GPT) 18 U/L (10-53); ANION GAP 8 MEQ/L (5-15); AST (GOT) 11 U/L (15-37); BICARBONATE 27.2 MEQ/L (21.0-32.0); BLOOD UREA NITROGEN 28 MG/DL (7-18); CHLORIDE 108 MEQ/L (98-107); GLOMERULAR FILTRATION RATE 39 ML/MIN (>89); GLUCOSE,FASTING 96 MG/DL (74-99); POTASSIUM 4.4 MEQ/L (3.5-5.1); SODIUM (NA) 143 MEQ/L (136-145); TOTAL BILIRUBIN ADULT 0.5 MG/DL (0.2-1.0)
[2017-02-26 10:31] LABS: BACTERIA, URINE RARE /hpf; BLOOD, URINE NEG (NEG); COMMENT (UR) CATH-CULTURE IND; CULTURE IF INDICATED CATH CULTURE IND; GLUCOSE,URINE NEG (NEG); KETONE, URINE NEG (NEG); NITRITE,URINE NEG (NEG); SQUAMOUS EPITHELIAL CELL URINE <1 /hpf (0-5); URINE COLOR LIGHT-YELLOW (YELLW/STRAW)
== END ==
LOC: CPRE 08:35
PROVIDERS: ATTEND Surgery
DX: Z01.812 Encounter for preprocedural laboratory examination (principal); B96.20 Unspecified Escherichia coli [E. coli] as the cause of diseases classified elsewhere
CPT/HCPCS: 36415; 80053; 81001; 85025; 85610; 85730; 87077; 87086; 87186

== ENCOUNTER → 2017-03-05 | Outpatient (CLI) | payer MEDICARE ==
[~2017-03-05] MED LIST changes: -ADJUSTABLE COMM1 MIS; -HYDR-3288 PO
[2017-03-05 11:38] LABS: BACTERIA, URINE OCC /hpf; BLOOD, URINE NEG (NEG); GLUCOSE,URINE NEG (NEG); GRANULAR CAST, URINE 1 /lpf; HYALINE CAST, URINE 3 /lpf (RARE); KETONE, URINE NEG (NEG); MUCUS URINE FEW /lpf (OCC); NITRITE,URINE NEG (NEG); PH, URINE 5.5 (5.0-8.5); SQUAMOUS EPITHELIAL CELL URINE <1 /hpf (0-5); TRANSITIONAL EPI CELLS, URINE <1 /hpf; URINE COLOR YELLOW (YELLW/STRAW)
[2017-03-05 11:43] LABS: COMMENT (UR) CATH-CULTURE IND; CULTURE IF INDICATED CATH CULTURE IND
== END ==
LOC: CPRE 10:14
PROVIDERS: ATTEND Surgery
DX: Z01.812 Encounter for preprocedural laboratory examination (principal); R82.99 Other abnormal findings in urine
CPT/HCPCS: 81001; 87086